=== PATIENT | female | born 1985 | race Caucasian/White ===

== ENCOUNTER 2022-06-23 08:25 | Day surgery (SDC) | payer BC | END 2022-06-23 09:00 | disposition home or self-care (01) | LOC: CSHSDC/OP 08:25 | PROVIDERS: ATTEND Obstetrics & Gynecology | DX: O36.0120 Maternal care for anti-D [Rh] antibodies, second trimester, not applicable or unspecified (principal); Z3A.27 27 weeks gestation of pregnancy ==

== ENCOUNTER 2022-09-10 23:52 | Inpatient (IN) | payer BC ==
[~2022-09-10 23:52] MED LIST: Acetaminophen 500 MG TAB PO PRN; Butorphanol Tartrate 1 MG/ML VIAL SLOW IVP PRN; Carboprost 250 MCG/ML AMP IM PRN; Diphenoxylate HCl/Atropine Tablet PO PRN; Docusate 100 MG CAP PO PRN; Fentanyl 100 MCG/2 ML VIAL SLOW IVP PRN; HYDROcodone/Acetaminophen 5/325 mg Tablet PO PRN; Ibuprofen 800 MG TAB PO PRN; Lidocaine 1% (PF) 30 ML VIAL SC PRN; Methylergonovine 0.2 MG/ML VIAL IM PRN; Misoprostol 200 MCG TAB PR PRN; NS w/ Oxytocin 30 units 500 ML IV SCH; Ondansetron PF 4 MG/2 ML Vial IVP PRN; Promethazine HCl 25 MG/ML VIAL IM PRN; Tranexamic Acid 1,000 MG/10 ML VIAL IVP PRN; hydrALAZINE 20 MG/ML VIAL SLOW IVP PRN
[2022-09-11 06:43] VITALS: BMI 30.2
[2022-09-11 07:01] LABS: Hemoglobin 12.2 g/dL (12.0-15.5); Mean Corpuscular HGB CONC 34.4 g/dL (32.0-36.0); Mean Corpuscular Hemoglobin 30.2 pg (27.0-33.0); Mean Corpuscular Volume 87.9 fl (81.6-98.3); Mean Platelet Volume 10.6 fl (7.4-10.4); Platelet Count 200 10x3/uL (150-450); RBC Distribution Width 13.6 % (11.5-14.5); Red Blood Cell (RBC) Count 4.04 10x6/uL (3.90-5.03); White Blood Cell (WBC) Count 8.2 10x3/uL (3.5-10.5)
[2022-09-11 07:33] LABS: Syphilis Antibody Nonreactive (Nonreactive); Syphilis Antibody Index 0.03 S/CO (<1.00 Non-Reactive)
[2022-09-11 07:35] LABS: HBSAg Index 0.14 S/CO (0-0.99); Hep B Surf Ag - L&D Non-Reactive S/CO (NonReactive)
[2022-09-11] MEDS ORDERED: Bupivacaine 0.25% HCL 30 ML VIAL ONE (08:00)
[2022-09-11] MEDS ORDERED: Fentanyl 2 mcg/Bup 0.1% Cadd 100 ML ONE (14:53)
[2022-09-11] MEDS: Lactated Ringer's 1,000 ML IV SCH ×2 (21:57→21:58)
[2022-09-11] MEDS ORDERED: Bisacodyl 10 MG SUPP PR PRN (22:28)
[2022-09-11] MEDS ORDERED: Ondansetron PF 4 MG/2 ML Vial IVP PRN (22:28)
[2022-09-11] MEDS ORDERED: hydrALAZINE 20 MG/ML VIAL SLOW IVP PRN (22:28)
[2022-09-11] MEDS ORDERED: Misoprostol 200 MCG TAB VAG PRN (22:28)
[2022-09-11] MEDS ORDERED: Milk Of Magnesia 30 ML UDCUP PO PRN (22:28)
[2022-09-11] MEDS ORDERED: Benzocaine-Menthol 82.5 ML CAN TOP PRN (22:28)
[2022-09-11] MEDS ORDERED: diphenhydrAMINE 25 MG CAP PO PRN (22:28)
[2022-09-11] MEDS ORDERED: Preparation H Ointment 28 GM TUBE PR PRN (22:28)
[2022-09-11] MEDS ORDERED: Promethazine HCl 25 MG/ML VIAL IM PRN (22:28)
[2022-09-11] MEDS ORDERED: HYDROcodone/Acetaminophen 5/325 mg Tablet PO PRN ×2 (22:28)
[2022-09-11] MEDS ORDERED: Varicella virus, LIVE 0.5 ML VIAL SC ONE (22:28)
[2022-09-11] MEDS ORDERED: Zolpidem Tartrate 5 MG TAB PO PRN (22:28)
[2022-09-11] MEDS ORDERED: Methylergonovine 0.2 MG/ML VIAL IM PRN (22:28)
[2022-09-11] MEDS ORDERED: NS w/ Oxytocin 30 units 500 ML IV SCH (22:28)
[2022-09-11] MEDS ORDERED: Boostrix 0.5 ML (Tdap) VIAL (>/=7 yrs of age) IM ONE (22:28)
[2022-09-11] MEDS ORDERED: Measles/Mumps/Rubella 10 MCG/0.5 ML VIAL SC ONE (22:28)
[2022-09-11] MEDS ORDERED: Lanolin Ointment 7 GM TUBE TOP PRN (22:28)
[2022-09-11] MEDS ORDERED: Ferrous Sulfate 325 MG TAB PO SCH (22:30)
[2022-09-11] MEDS ORDERED: Ibuprofen 800 MG TAB PO SCH (22:45)
[2022-09-11] MEDS ORDERED: Docusate 100 MG CAP PO SCH (22:45)
[2022-09-12 05:01] LABS: Hemoglobin 11.9 g/dL (12.0-15.5); Mean Corpuscular HGB CONC 34.1 g/dL (32.0-36.0); Mean Corpuscular Volume 87.9 fl (81.6-98.3); Mean Platelet Volume 10.6 fl (7.4-10.4); Platelet Count 214 10x3/uL (150-450); RBC Distribution Width 13.4 % (11.5-14.5); Red Blood Cell (RBC) Count 3.97 10x6/uL (3.90-5.03); White Blood Cell (WBC) Count 17.3 10x3/uL (3.5-10.5)
[2022-09-12] MEDS: Ibuprofen 800 MG TAB PO SCH ×3 (05:57→22:00)
[2022-09-12] MEDS: Ferrous Sulfate 325 MG TAB PO SCH ×2 (08:38→16:49)
[2022-09-12] MEDS: Prenatal Vitamin 1 TAB PO SCH (08:39)
[2022-09-12] MEDS: Docusate 100 MG CAP PO SCH ×2 (08:39→22:00)
[2022-09-13] MEDS: Ibuprofen 800 MG TAB PO SCH (05:04)
[2022-09-13 07:44] VITALS: BP 106/55; TEMP 97.5
[2022-09-13] MEDS: Ferrous Sulfate 325 MG TAB PO SCH (07:53)
[2022-09-13] MEDS: Docusate 100 MG CAP PO SCH (08:03)
[2022-09-13] MEDS: Prenatal Vitamin 1 TAB PO SCH (08:03)
== END 2022-09-13 11:30 | disposition home or self-care (01) | DRG 807 ==
LOC: CSHLD 23:52 → UNDOADMIN 09-11 05:44 → CSHPP 09-11 22:40
PROVIDERS: ADMIT Obstetrics & Gynecology; ATTEND Obstetrics & Gynecology
PROC: 3E0P7VZ Introduction of Hormone into Female Reproductive, Via Natural or Artificial Opening (ICD-10-PCS; 2022-09-10)
PROC: 10E0XZZ Delivery of Products of Conception, External Approach (ICD-10-PCS; principal; 2022-09-11)
PROC: 0HQ9XZZ Repair Perineum Skin, External Approach (ICD-10-PCS; 2022-09-11)
DX: O70.0 First degree perineal laceration during delivery (principal); Z37.0 Single live birth; Z3A.39 39 weeks gestation of pregnancy; Z88.0 Allergy status to penicillin
CPT/HCPCS: 51702; 85027; 86780; 86850; 86870; 86900; 86901; 87340; J2590; S0020